=== PATIENT | female | born 1930 | race Caucasian/White ===

== ENCOUNTER 2017-12-10 23:08 | Inpatient (IN) | END 2017-12-12 14:35 | disposition home or self-care (01) | DRG 185 ==

== ENCOUNTER 2018-11-28 15:09 | Emergency (ER) | payer MEDICARE, OTHER ==
[~2018-11-28] VITALS: Ht 167.6 cm; Wt 75.0 kg
[~2018-11-28 15:09] MED LIST: ACET325T40 PO; ALEN70TA5 PO; AMLO-145 PO; AMLO5TAB4 PO; ASPI-817 PO; CARV3.1260 PO; CHOL200073 PO; CLON-379 PO; CRES20 PO; FURO20TA3 PO; IBUP-1542 PO; ICOS1CAP PO; LOSA25TA12 PO; OMEP40CA6 PO
[2018-11-28 15:34] VITALS: BP 159/65; PULSE 73; RESP 16; Ht 167.6 cm; Wt 75.0 kg
[2018-11-28] MEDS ORDERED: IBUPROFEN 600 MG TAB PO ONE (17:00)
== END 2018-11-28 17:58 | disposition home or self-care (01) ==
LOC: FTE 15:09
DX: S92.354A Nondisplaced fracture of fifth metatarsal bone, right foot, initial encounter for closed fracture (principal); I10 Essential (primary) hypertension; W18.2XXA Fall in (into) shower or empty bathtub, initial encounter; Y92.002 Bathroom of unspecified non-institutional (private) residence as the place of occurrence of the external cause; Z79.82 Long term (current) use of aspirin
CPT/HCPCS: 73630